=== PATIENT | male | born 1980 | race Hispanic/Latino ===

== ENCOUNTER 2020-07-15 02:14 | Emergency (ER) | payer SELFPAY ==
[~2020-07-15] VITALS: Ht 170.2 cm; Wt 139.7 kg
--- NOTE | 2020-07-15 02:33 | Emergency Department Note ---
History of Present Illnes History of Present Illness Chief Complaint: Neurological History of Present Illness This is a 39 year old male that presents to the emergency department after one hour onset of left-sided paresthesia with weakness of his left facial muscles. Patient states that he noted that he was unable to close her left eye all the way so decided to come in for evaluation. Denies any other neurological complaints. Denies any pain anywhere, no rash. . Historian: Patient Arrival Mode: Car Onset (how long ago): hour(s) (1) Location: L side of face Radiation: Reports non-radiation Severity: mild Onset quality: gradual Duration (how long): hour(s) (1) Timing of current episode: constant Progression: worsening Chronicity: new Context: Denies recent illness, Denies recent surgery, Denies recent immobilization Relieving factors: none Exacerbating factors: none Associated symptoms: Reports denies other symptoms Treatments prior to arrival: none Past Medical/Family History Physician Review I have reviewed the patient's past medical and family history. Any updates have been documented here. Past Medical History Recent Fever: No Clinical Suspicion of Infectio: No New/Unexplained Change in Ment: No Past Medical History: Diabetes Past Surgical History: None Review of Systems Review of Systems Constitutional: Reports no symptoms EENTM: Reports no symptoms Cardiovascular: Reports no symptoms Respiratory: Reports no symptoms Gastrointestinal: Reports no symptoms Genitourinary: Reports no symptoms Musculoskeletal: Reports no symptoms Integumentary: Reports no symptoms Neurological: Reports no symptoms Psychological: Reports no symptoms Endocrine: Reports no symptoms Hematological/Lymphatic: Reports no symptoms Physical Exam Related Data Allergies: Coded Allergies: No Known Allergies (Unverified , 07/15/20) Triage Vital Signs Vital Signs Date Time Temp Pulse Resp B/P (MAP) Pulse Ox O2 Delivery O2 Flow Rate FiO2 07/15/20 02:18 98.2 82 20 159/109 100 Room Air Physical Exam CONSTITUTIONAL Constitutional: Present well-developed, Present well-nourished HENT HENT: Present normocephalic, Present atraumatic, Present oropharynx clear/moist, Present nose normal HENT L/R: Present left ext ear normal, Present right ext ear normal EYES Eyes: Reports PERRL, Reports conjunctivae normal NECK Neck: Present ROM normal PULMONARY Pulmonary: Present effort normal, Present breath sounds normal CARDIOVASCULAR Cardiovascular: Present regular rhythm, Present heart sounds normal, Present capillary refill normal, Present normal rate GASTROINTESTINAL Abdominal: Present soft, Present nontender, Present bowel sounds normal GENITOURINARY Genitourinary: Present exam deferred SKIN Skin: Present warm, Present dry MUSCULOSKELETAL Musculoskeletal: Present ROM normal NEUROLOGICAL Neurological: Present alert, Present oriented x 3, Present no gross motor or sensory deficits, Present other (patient with a minor left-sided facial droop with decreased sensation over the left side. There is no sparing of the forehead, concern for peripheral lesion.) PSYCHOLOGICAL Psychological: Present mood/affect normal, Present judgement normal Assessment & Plan Medical Decision Making MDM Patient is a 39-year-old male with history of right-sided facial droop plus paresthesia. Patient on exam also has mild periocular edema, no scleral injection to be concerning for possible zoster. No lesions around the ear either. Given the facial droop and slight minog-ocular edema, we'll treat with Valtrex. Will also check CT of the head to rule out intracranial pathology. Reassessment Reassessment CT head normal, we'll treat for Noel's palsy and possible zoster. Patient understands what to watch out for in regards to need to come back such as eye involvement or severe pain. Assessment & Plan Final Impression: (1) Noel's palsy (2) Zoster Depart Disposition: HOME, SELF-CARE Last Vital Signs Date Time Temp Pulse Resp B/P (MAP) Pulse Ox O2 Delivery O2 Flow Rate FiO2 07/15/20 02:18 98.2 82 20 159/109 100 Room Air Home Meds Active Scripts Prednisone (PREDNISONE) 20 Mg Tab, 60 MG PO DAILY, #15 TAB Prov:BENNETT WALLACE MD 07/15/20 Valacyclovir Hcl (VALACYCLOVIR) 1,000 Mg Tablet, 1000 MG PO TID, #21 Prov:BENNETT WALLACE MD 07/15/20 BENNETT WALLACE MD Jul 15, 2020 02:33
--- NOTE | 2020-07-15 03:08 | Diagnostic Imaging Report ---
CT BRAIN WO HISTORY: Left-sided facial droop COMPARISON: None. TECHNIQUE: Noncontrast axial scans were obtained from skull base to the vertex. Coronal and sagittal reconstructions obtained from the axial data. One or more of the following dose reduction techniques were used: Automated exposure control, adjustment of the mA and/or kV according to patient size, and/or utilization of iterative reconstruction technique. DISCUSSION: Scalp/Skull: Unremarkable. Brain sulci: Mildly prominent. Ventricles: Mild compensatory dilatation. Extra-axial spaces: No masses or fluid collections. Parenchyma: No abnormal densities. No mass, hemorrhage, or large vascular territory acute infarct. Dural sinuses: No abnormal densities. Sellar/Suprasellar region: Intact. Skull base: Intact. Incidental findings: Mild left maxillary sinus and right sphenoid sinus mucosal thickening. The adenoid tonsils are mildly prominent. Mild left lamina papyracea deformity may be from remote trauma or congenital dehiscence. IMPRESSION: 1. No acute intracranial abnormalities. 2. Mild generalized cerebral volume loss. Signed by: Dr. Lui Brand M.D. on 07/15/2020 3:04 AM
--- OUTSIDE RECORDS SUMMARY | 2020-07-15 03:13 | XMS REPORT | Continuity of Care Document ---
Author Author [facility] t Organization [facility] Address [address] [place] [phone] Phone Unavailable Care Team Providers Care Gypsum Calciner Name Role Phone Bart WALLACE Unavailable Problems This patient has no known problems. Allergies, Adverse Reactions, Alerts This patient has no known allergies or adverse reactions. Medications This patient has no known medications. Procedures This patient has no known procedures. Results Test Description Test Time Test Comments Results Result Comments Source CT BRAIN WO 2020-07-15 03:00:00 [facility] 1980 Sex: M [facility] [address] [place] [address] Patient Name: SAMARIA MEI MR #: [id number] : 1980 Age/Sex: 39/M Req #: [id number] [facility] Physician: Ordered by: BENNETT WALLACE MD Report #: [id number] Location: ER Room/Bed: Procedure: [id number] CT/CT BRAIN WO Exam Date: 07/15/20 Exam Time: 0235 REPORT STATUS: Signed CT BRAIN WO HISTORY: Left-sided facial droop COMPARISON: None. TECHNIQUE: Noncontrast axial scans were obtained from skull base to the vertex. Coronal and sagittal reconstructions obtained from the axial data. One or more of the following dose reduction techniques were used: Automated exposure control, adjustment of the mA and/or kV according to patient size, and/or utilization of iterative reconstruction technique. DISCUSSION: Scalp/Skull: Unremarkable. Brain sulci: Mildly prominent. Ventricles: Mild compensatory dilatation. Extra-axial spaces: No masses or fluid collections. Parenchyma: No abnormal densities. No mass, hemorrhage, or large vascular territory acute infarct. Dural sinuses: No abnormal densities. Sellar/Suprasellar region: Intact. Skull base: Intact. Incidental findings: Mild left maxillary sinus and right sphenoid sinus mucosal thickening. The adenoid tonsils are mildly prominent. Mild left lamina papyracea deformity may be from remote trauma or congenital dehiscence. IMPRESSION: 1. No acute intracranial abnormalities. 2. Mild generalized cerebral volume loss. Signed by: Dr. Lui Brand M.D. on 07/15/2020 3:04 AM Dictated By: LUI BRAND MD 3 Transcribed By: WESLY on 07/15/20303 COPY TO: BENNETT WALLACE MD
[2020-07-15] MEDS ORDERED: PREDNISONE20 MG PO (03:22)
[2020-07-15] MEDS ORDERED: VALACYCLOVIR1000 MG PO (03:22)
[2020-07-15 03:34] VITALS: BP 146/94
== END 2020-07-15 03:36 | disposition home or self-care (01) ==
LOC: ER 02:26
DX: G51.0 Bell's palsy (principal); B02.9 Zoster without complications; E11.9 Type 2 diabetes mellitus without complications
CPT/HCPCS: 70450; 99283